=== PATIENT | female | born 2000 | race Caucasian/White ===

== ENCOUNTER 2022-01-25 23:13 | Emergency (ER) | payer OTHER ==
[2022-01-26 02:59] LABS: BUN/CREATININE RATIO 15 (0-10)
[2022-01-26] MEDS ORDERED: REGLAN10 MG PO (03:46)
[2022-01-26] MEDS ORDERED: OMNICEF 300 MG300 MG PO (03:46)
[2022-01-26] MEDS ORDERED: BENTYL 20MG TAB20 MG PO (03:46)
[2022-01-26 03:59] LABS: HEMOGLOBIN 14.2 gm/dl (12.3-15.3); RED BLOOD COUNT 4.82 M/UL (4.00-5.10); WHITE BLOOD COUNT 12.7 K/UL (4.5-11.0)
== END 2022-01-26 04:45 | disposition home or self-care (01) ==
LOC: ER1 23:13
PROVIDERS: Physician Assistant
DX: O20.0 Threatened abortion (principal); O23.41 Unspecified infection of urinary tract in pregnancy, first trimester; N39.0 Urinary tract infection, site not specified; O99.611 Diseases of the digestive system complicating pregnancy, first trimester; K21.9 Gastro-esophageal reflux disease without esophagitis; Z3A.09 9 weeks gestation of pregnancy
CPT/HCPCS: 80053; 81001; 83690; 83735; 84702; 84703; 85025; 86850; 86900; 86901; 87086; 96374; 96375; 99284; J0696; J2765; J2790

== ENCOUNTER 2022-04-06 15:58 | Emergency (ER) | payer OTHER ==
[~2022-04-06 15:58] MED LIST: BENTYL 20MG TAB20 MG PO; OMNICEF 300 MG300 MG PO; REGLAN10 MG PO
== END 2022-04-06 18:35 | disposition home or self-care (01) ==
LOC: ER1 15:58
DX: O99.891 Other specified diseases and conditions complicating pregnancy (principal); W01.0XXA Fall on same level from slipping, tripping and stumbling without subsequent striking against object, initial encounter; Z3A.19 19 weeks gestation of pregnancy
CPT/HCPCS: 81001; 99284

== ENCOUNTER 2022-04-27 10:33 | Outpatient (CLI) | payer OTHER | END 2022-04-27 13:34 | disposition home or self-care (01) | LOC: GENOP 10:33 | DX: O46.92 Antepartum hemorrhage, unspecified, second trimester (principal); Z3A.22 22 weeks gestation of pregnancy | CPT/HCPCS: G0463 ==

== ENCOUNTER 2022-06-19 17:50 | Outpatient (CLI) | payer OTHER | END 2022-06-19 19:06 | disposition home or self-care (01) | LOC: GENOP 17:50 | DX: O36.8130 Decreased fetal movements, third trimester, not applicable or unspecified (principal); Z3A.30 30 weeks gestation of pregnancy | CPT/HCPCS: G0463 ==

== ENCOUNTER 2022-07-09 22:51 | Outpatient (CLI) | payer OTHER | END 2022-07-09 23:41 | disposition home or self-care (01) | LOC: GENOP 22:51 | DX: O26.853 Spotting complicating pregnancy, third trimester (principal); Z3A.33 33 weeks gestation of pregnancy | CPT/HCPCS: G0463 ==

== ENCOUNTER → 2022-07-13 | Outpatient (CLI) | payer OTHER | LOC: GENOP 14:02 | DX: O36.8130 Decreased fetal movements, third trimester, not applicable or unspecified (principal); Z3A.33 33 weeks gestation of pregnancy | CPT/HCPCS: 59025; 81001 ==

== ENCOUNTER 2022-08-08 16:30 | Outpatient (CLI) | payer BC, OTHER | END 2022-08-08 18:28 | disposition home or self-care (01) | LOC: GENOP 16:30 | DX: O99.891 Other specified diseases and conditions complicating pregnancy (principal); R51.9 Headache, unspecified; H53.9 Unspecified visual disturbance; O99.210 Obesity complicating pregnancy, unspecified trimester; Z3A.37 37 weeks gestation of pregnancy | CPT/HCPCS: 81001; G0463 ==